=== PATIENT | female | born 1960 | race Caucasian/White ===

== ENCOUNTER 2021-01-17 11:17 | Emergency (ER) | payer BC ==
[~2021-01-17] VITALS: Ht 165.1 cm; Wt 78.5 kg
[2021-01-17 11:20] VITALS: BP 135/72
[2021-01-17] MEDS ORDERED: ALBUTEROL/IPRATROPIUM 2.5MG/0.5MG, 3 ML ONE (12:56)
[2021-01-17] MEDS ORDERED: ALBUTEROL/IPRATROPIUM 2.5MG/0.5MG, 3 ML NPPB ONE (13:00)
--- NOTE | 2021-01-17 13:08 | NUR ---
neb started, called lab for covid swabs, swabs to be tubed down. as
--- NOTE | 2021-01-17 13:24 | NUR ---
given blanket/tea. pt just finished neb, sts feels jittery but breathing a little easier. as
--- NOTE | 2021-01-17 14:04 | NUR ---
paulette swab walked to lab. pt desats to 88 after walking. tired. sts 3 of her coworkers paulette test came back pos today. cxr shows pna. law aware, to come reeval pt. as
== END 2021-01-17 15:14 | disposition home or self-care (01) ==
LOC: ED 14:45
DX: J06.9 Acute upper respiratory infection, unspecified (principal); Z20.822 Contact with and (suspected) exposure to COVID-19; J18.9 Pneumonia, unspecified organism; B34.9 Viral infection, unspecified; I10 Essential (primary) hypertension; J45.909 Unspecified asthma, uncomplicated
CPT/HCPCS: 71045; 93005; 94640; 99285; U0003; U0005